=== PATIENT | male | born 2000 | race Caucasian/White ===

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

== ENCOUNTER 2022-05-23 15:28 | Emergency (ER) | payer OTHER, SELFPAY ==
[~2022-05-23] VITALS: Ht 193 cm; Wt 131.8 kg
[~2022-05-23 15:28] MED LIST: OCUF0.25 OS
[2022-05-23 17:13] VITALS: BP 143/75
[2022-05-25] MEDS ORDERED: IBUP-1022 PO (13:45)
== END 2022-05-23 17:15 | disposition home or self-care (01) ==
LOC: M ED 15:28
DX: S62.512A Displaced fracture of proximal phalanx of left thumb, initial encounter for closed fracture (principal); W01.0XXA Fall on same level from slipping, tripping and stumbling without subsequent striking against object, initial encounter; Y92.89 Other specified places as the place of occurrence of the external cause; F17.210 Nicotine dependence, cigarettes, uncomplicated; Z88.5 Allergy status to narcotic agent

== ENCOUNTER → 2022-05-25 | Outpatient (CLI) | payer SELFPAY ==
[~2022-05-25] MED LIST changes: +IBUP-1022 PO
== END ==
LOC: M LABSMTC 10:53
PROVIDERS: ATTEND Anesthesiology
DX: Z01.812 Encounter for preprocedural laboratory examination (principal); Z11.52 Encounter for screening for COVID-19

== ENCOUNTER 2022-05-26 12:12 | Day surgery (SDC) | payer SELFPAY ==
[~2022-05-26] VITALS: Ht 193 cm; Wt 132.4 kg
[2022-05-26] MEDS ORDERED: MIDAZOLAM INJ 2MG/2ML VIAL (J2250 PER 1MG) As Ordered ONE (13:29)
[2022-05-26] MEDS ORDERED: ceFAZolin SOD 2 GM in IV 1 EA IV ONE (13:30)
[2022-05-26] MEDS ORDERED: ceFAZolin SOD 1 GM in D5W MINI-BAG PLUS 50 ML IV ONE (13:30)
[2022-05-26] MEDS ORDERED: fentaNYL 100 MCG/2 ML INJECTION As Ordered ONE ×2 (13:31→16:07)
[2022-05-26] MEDS ORDERED: propofoL 200 MG/20 ML VIAL As Ordered ONE (13:31)
[2022-05-26] MEDS ORDERED: BACITRACIN OINTMENT 30GM TUBE As Ordered ONE (15:01)
[2022-05-26] MEDS ORDERED: BUPIVACAINE HCL 0.25% 30ML VIAL As Ordered ONE (15:01)
[2022-05-26] MEDS ORDERED: ACETAMINOPHEN 1000MG 100ML IV BTL (OFIRMEV) (J0131 PER 10MG) As Ordered ONE (15:07)
[2022-05-26] MEDS ORDERED: GLYCOPYRROLATE INJ 0.2 MG/ML 2 ML VIAL As Ordered ONE (15:07)
[2022-05-26] MEDS ORDERED: METOCLOPRAMIDE INJ 10MG/2ML VIAL (J2765 PER 1) As Ordered ONE (15:07)
[2022-05-26] MEDS ORDERED: dexameTHASONE 4 MG/ML 1ML VIAL (J1100 PER 1MG) As Ordered ONE (15:08)
[2022-05-26] MEDS ORDERED: ONDANSETRON 4MG 2ML VIAL As Ordered ONE (15:08)
[2022-05-26] MEDS ORDERED: KETOROLAC 60MG 2ML VIAL As Ordered ONE (15:08)
[2022-05-26] MEDS ORDERED: ceFAZolin 1GM VIAL (J0690 PER 500MG) As Ordered ONE (15:26)
[2022-05-26] MEDS ORDERED: MORPHINE 2 MG/ML 1ML VIAL IV PRN (16:45)
[2022-05-26] MEDS ORDERED: LR 1,000 ML IV SCH (16:45)
[2022-05-26] MEDS ORDERED: ONDANSETRON 4MG 2ML VIAL IV PRN (16:45)
[2022-05-26] MEDS: fentaNYL 100 MCG/2 ML INJECTION IV PRN ×2 (17:19→17:25)
[2022-05-26] MEDS ORDERED: oxyCODONE 5MG TAB PO PRN (17:20)
[2022-05-26 18:15] VITALS: BP 142/85
[2022-05-27] MEDS ORDERED: UNRESOLVED CLARIFICATION ENTRY XX SCH (00:01)
== END 2022-05-26 18:25 | disposition home or self-care (01) ==
LOC: M SDC 12:12
PROVIDERS: ATTEND Orthopaedic Surgery Hand Surgery
DX: S62.512A Displaced fracture of proximal phalanx of left thumb, initial encounter for closed fracture (principal); W19.XXXA Unspecified fall, initial encounter; Y92.89 Other specified places as the place of occurrence of the external cause; Y93.9 Activity, unspecified; Y99.9 Unspecified external cause status; F17.290 Nicotine dependence, other tobacco product, uncomplicated
CPT/HCPCS: 26735; 76000; J0131; J0690; J1100; J1885; J2250; J2405; J3010

== ENCOUNTER → 2022-06-09 | Outpatient (CLI) | payer SELFPAY | LOC: M SOG 16:15 | PROVIDERS: ATTEND Orthopaedic Surgery Hand Surgery | DX: S62.512A Displaced fracture of proximal phalanx of left thumb, initial encounter for closed fracture (principal) ==

== ENCOUNTER → 2022-07-09 | Outpatient (CLI) | payer SELFPAY | LOC: M SOG 14:37 | PROVIDERS: ATTEND Orthopaedic Surgery Hand Surgery | DX: S62.512A Displaced fracture of proximal phalanx of left thumb, initial encounter for closed fracture (principal) ==